=== PATIENT | female | born 1985 | race African-American/Black ===

== ENCOUNTER 2016-08-30 | Outpatient (CLI) | payer OTHER | END 2016-08-30 02:31 | disposition critical access hospital (66) | DX: R07.9 Chest pain, unspecified (principal) | CPT/HCPCS: A0425; A0429 ==

== ENCOUNTER 2016-08-30 02:50 | Emergency (ER) | payer OTHER ==
[2016-08-30] MEDS ORDERED: MAG HYDROX/AL HYDROX/SIMETH 30 ML UDC PO STA (03:31)
[2016-08-30] MEDS ORDERED: ACETAMINOPHEN 325 MG TABLET PO STA (03:31)
[2016-08-30] MEDS ORDERED: ACETAMINOPHEN 325 MG TABLET PO ONE (03:50)
[2016-08-30] MEDS ORDERED: MAG HYDROX/AL HYDROX/SIMETH 30 ML UDC ONE (03:50)
== END 2016-08-30 05:15 | disposition home or self-care (01) ==
DX: R07.2 Precordial pain (principal)
CPT/HCPCS: 71020; 93005; 93010; 99283; 99284; A9270

== ENCOUNTER 2016-10-29 17:52 | Emergency (ER) | payer OTHER ==
[2016-10-29] MEDS ORDERED: NITROFURANTOIN MACRO 100 MG CAPSULE PO STA (18:43)
[2016-10-29] MEDS ORDERED: NITROFURANTOIN MACRO 100 MG CAPSULE PO ONE (18:55)
== END 2016-10-29 19:15 | disposition home or self-care (01) ==
DX: N39.0 Urinary tract infection, site not specified (principal); R03.0 Elevated blood-pressure reading, without diagnosis of hypertension
CPT/HCPCS: 81001; 81025; 87077; 87086; 87181; 99283; A9270

== ENCOUNTER 2017-12-02 04:52 | Outpatient (CLI) | payer OTHER | END 2017-12-02 04:53 | disposition critical access hospital (66) | LOC: EMS 04:52 | PROVIDERS: ATTEND Surgery | DX: R07.9 Chest pain, unspecified (principal) | CPT/HCPCS: A0425; A0427 ==

== ENCOUNTER 2017-12-02 05:10 | Emergency (ER) | payer OTHER ==
--- NOTE | 2017-12-02 05:43 | ED Physician Documentation ---
PD HPI CHEST PAIN - Stated complaint Stated Complaint: CP - Chief complaint Chief Complaint: Cardiac - History obtained from History obtained from: Patient - History of Present Illness Timing - onset: Enter time (04:15), Today Timing - onset during: Sleep Timing - duration: Minutes Timing - details: Abrupt onset Pain level now: 0 Location: Substernal, Left chest Improved by: Nothing Worsened by: Other (no exacerbating factors) Associated symptoms: Palpitations. No: Shortness of air, Diaphoresis, Nausea, Vomiting, General Weakness Similar symptoms before: No diagnosis - Additional information Additional information: woke at 4:15 this morning with chest pain, rapid palpitations. 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 She has had similar (milder) chest pain, episodic, x 3 days but not palpitations. Review of Systems Constitutional: denies: Fever, Chills, Sweats Cardiac: reports: Chest pain / pressure, Palpitations. denies: Pedal edema, Calf pain Respiratory: denies: Dyspnea, Cough GI: reports: Reviewed and negative Musculoskeletal: denies: Extremity swelling PD PAST MEDICAL HISTORY - Past Medical History Past Medical History: No Cardiovascular: Other Respiratory: None Neuro: None Endocrine/Autoimmune: None - Past Surgical History Past Surgical History: No - Present Medications Home Medications: Ambulatory Orders Medication Instructions Recorded Confirmed LORazepam [Lorazepam] 0.5 - 1 mg PO BID PRN #14 tablet 12/02/17 - Allergies Allergies/Adverse Reactions: Allergies Allergy/AdvReac Type Severity Reaction Status Date / Time ibuprofen [From Motrin] Allergy Intermediate Rash Verified 12/02/17 05:16 - Social History Does the pt smoke?: No Smoking Status: Never smoker Does the pt drink ETOH?: No Does the pt have substance abuse?: No - Immunizations Immunizations are current?: Yes - POLST Patient has POLST: No PD ED PE NORMAL - Vitals Vital signs reviewed: Yes - General General: Alert and oriented X 3, No acute distress, Well developed/nourished - Cardiac Cardiac: RRR, No murmur, No gallop, No rub - Respiratory Respiratory: No respiratory distress, Clear bilaterally - Abdomen Abdomen: Soft, Non tender - Extremities Extremities: No edema Results - Vitals Vitals: Oxygen O2 Source Room air - EKG (time done) No standard instances Rate: Rate (enter#) (67) Rhythm: NSR [place]: Normal Intervals: Normal [place] QRS: Normal Ischemia: Normal ST segments, T wave inversion (isolated III) Compare to prior EKG: Unchanged from prior EKG (08/30/16) PD MEDICAL DECISION MAKING - ED course Complexity details: reviewed old records, considered differential, d/w patient ED course: At the completion of my H+P, patient asks to be discharged home without testing beyond the EKG that was already performed. She says she feels fine and will follow-up with her doctor. Departure - Departure Disposition: 01 Home, Self Care Clinical Impression: Heart palpitations, Chest pain Condition: Good Instructions: ED Chest Pain Atypical Unkn Cause, ED Palpitations Follow-Up: AMBER Goldstein [Provider Group] Prescriptions: LORazepam [Lorazepam] 0.5 - 1 mg PO BID PRN #14 tablet PRN Reason: Anxiety Discharge Date/Time: 12/02/17 06:16
[2017-12-02 06:03] VITALS: BP 111/81
== END 2017-12-02 06:16 | disposition home or self-care (01) ==
LOC: EDUNIT# → SUPCPDRO 05:10 → ED 05:10
DX: R00.2 Palpitations (principal); R07.9 Chest pain, unspecified
CPT/HCPCS: 93005; 99284

== ENCOUNTER 2018-03-19 21:12 | Emergency (ER) | payer OTHER ==
[2018-03-19 22:04] LABS: BASOPHILS # (AUTO) 0.1 10^3/uL (0.0-0.1); BASOPHILS % (AUTO) 0.7 %; EOSINOPHILS # (AUTO) 0.1 10^3/uL (0.0-0.7); EOSINOPHILS % (AUTO) 1.1 %; HGB - HEMOGLOBIN 11.6 g/dL (12.0-16.0); LYMPHOCYTES # (AUTO) 2.5 10^3/uL (1.5-3.5); LYMPHOCYTES % (AUTO) 22.7 %; MEAN CORPUSCULAR HEMOGLOBIN 28.4 pg (27.0-31.0); MEAN CORPUSCULAR HGB CONC 33.7 g/dL (32.0-36.0); MEAN CORPUSCULAR VOLUME 84.3 fL (81.0-99.0); MEAN PLATELET VOLUME 7.5 fL (7.9-10.8); MONOCYTES # (AUTO) 0.7 10^3/uL (0.0-1.0); MONOCYTES % (AUTO) 6.1 %; NEUTROPHILS # (AUTO) 7.6 10^3/uL (1.5-6.6); NEUTROPHILS % (AUTO) 69.4 %; PLT - PLATELET COUNT 315 10^3/uL (130-450); RED BLOOD COUNT 4.08 10^6/uL (4.20-5.40); RED CELL DISTRIBUTION WIDTH 13.6 % (12.0-15.0)
[2018-03-19 22:16] LABS: ALBUMIN 4.1 g/dL (3.2-5.5); ALBUMIN/GLOBULIN RATIO 1.2 (1.0-2.2); BILIRUBIN,TOTAL 0.5 mg/dL (0.2-1.0); CALCIUM 9.2 mg/dL (8.5-10.3); CREATININE 0.7 mg/dL (0.4-1.0); TOTAL PROTEIN 7.4 g/dL (6.7-8.2)
--- NOTE | 2018-03-19 22:19 | ED Physician Documentation ---
History of Present Illness - Stated complaint Stated Complaint: SOA - Chief complaint Chief Complaint: General - History obtained from History obtained from: Patient - History of Present Illness Timing: Other (various c/o over different timeframes) Improved by: no ameliorating factors Worsened by: no exacerbating factors - Treatment prior to arrival Treatment prior to arrival: patient has had difficulty sleeping since December of this year, was T+R from this ED and rx lorazepam. did not fill the rx, as she preferred to try to work on the problem without using medication. She says the difficulty sleeping improved initially but gradually worsened over past 1-2 months and particularly worse past week. She also experiences episodic palpitations and recently has been experiencing generalized malaise and fatigue. Has tried melatonin with some improvement although she feels groggy the next day. Review of Systems Constitutional: reports: Myalgias, Fatigue. denies: Fever, Chills Cardiac: reports: Palpitations. denies: Chest pain / pressure Respiratory: reports: Dyspnea. 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 HEENT: None Psych: None Musculoskeletal: None Derm: None - Past Surgical History Past Surgical History: No - Present Medications Home Medications: Ambulatory Orders Medication Instructions Recorded Confirmed LORazepam [Lorazepam] 1 mg PO QPM PRN #14 tablet 03/19/18 - Allergies Allergies/Adverse Reactions: Allergies Allergy/AdvReac Type Severity Reaction Status Date / Time ibuprofen [From Motrin] Allergy Intermediate Rash Verified 12/02/17 05:16 - Social History Does the pt smoke?: No Smoking Status: Never smoker Does the pt drink ETOH?: Yes Does the pt have substance abuse?: No - Immunizations Immunizations are current?: Yes - POLST Patient has POLST: No PD ED PE NORMAL - Vitals Vital signs reviewed: Yes - General General: Alert and oriented X 3, No acute distress, Well developed/nourished - Neck Neck: Supple, no meningeal sign - Cardiac Cardiac: RRR, No murmur, No gallop, No rub - Respiratory Respiratory: No respiratory distress, Clear bilaterally - Abdomen Abdomen: Soft, Non tender - Derm Derm: Normal color, Warm and dry - Extremities Extremities: No edema - Neuro Neuro: Alert and oriented X 3, recordist 2-12 intact, No motor deficit, No sensory deficit, Normal speech Results - Vitals Vitals: Vital Signs - 24 hr 03/19/18 03/19/18 03/19/18 21:15 21:59 23:04 Temperature 36.4 C L 36.9 C 36.2 C L Heart Rate 68 66 67 Respiratory 16 14 18 Rate Blood Pressure 118/79 119/75 106/68 O2 Saturation 100 100 100 Oxygen O2 Source Room air - EKG (time done) No standard instances Rate: Rate (enter#) (62) Rhythm: NSR [place]: Normal Intervals: Normal [place] QRS: Normal Ischemia: Normal ST segments, T wave inversion (isolated III) - Labs Labs: Laboratory Tests 03/19/18 03/19/18 03/19/18 22:00 22:00 22:15 WBC 11.0 H RBC 4.08 L Hgb 11.6 L Hct 34.4 L MCV 84.3 MCH 28.4 MCHC 33.7 RDW 13.6 Plt Count 315 MPV 7.5 L Neut # (Auto) 7.6 H Lymph # (Auto) 2.5 [place] # (Auto) 0.7 Eos # (Auto) 0.1 Baso # (Auto) 0.1 Absolute Nucleated RBC 0.01 Nucleated RBC % 0.0 Sodium 136 Potassium 3.8 Chloride 103 Carbon Dioxide 25 Anion Gap 8.0 BUN 10 Creatinine 0.7 Estimated GFR (MDRD) 119 Glucose 91 Calcium 9.2 Magnesium 2.0 Total Bilirubin 0.5 AST 16 ALT 18 Alkaline Phosphatase 55 Total Protein 7.4 Albumin 4.1 Globulin 3.3 Albumin/Globulin Ratio 1.2 Lipase 28 Urine Color YELLOW Urine Clarity CLEAR Urine pH 6.5 Ur Specific [place] 1.010 Urine Protein NEGATIVE Urine Glucose (UA) NEGATIVE Urine Ketones NEGATIVE Urine Occult Blood TRACE-LYSE Urine Nitrite NEGATIVE Urine Bilirubin NEGATIVE Urine Urobilinogen 0.2 (NORMAL) Ur Leukocyte Esterase NEGATIVE Ur Microscopic Review NOT INDICATED Urine Culture Comments NOT INDICATED Urine HCG, Qual NEGATIVE PD MEDICAL DECISION MAKING - ED course Complexity details: reviewed old records, reviewed results, re-evaluated patient , considered differential, d/w patient ED course: NAD on this evaluation. she is calm, cooperative, pleasant. Unremarkable blood tests and EKG. Further emergent testing not indicated at this time. Encouraged to return if worse, and to f/u with her primary care provider, as further tests might be recommended. I wrote new rx for lorazepam, as she did not fill previous rx and does not think she still has it. This is to be used as needed at night for sleep. - Sepsis Event Vital Signs: Vital Signs - 24 hr 03/19/18 03/19/18 03/19/18 21:15 21:59 23:04 Temperature 36.4 C L 36.9 C 36.2 C L Heart Rate 68 66 67 Respiratory 16 14 18 Rate Blood Pressure 118/79 119/75 106/68 O2 Saturation 100 100 100 Oxygen O2 Source Room air Departure - Departure Disposition: 01 Home, Self Care Clinical Impression: Heart palpitations Insomnia Qualifiers: Insomnia type: unspecified Qualified Code(s): G47.00 - Insomnia, unspecified Condition: Good Instructions: ED Insomnia, ED Palpitations Follow-Up: Starr Jeronimo PA-C [Primary Care Provider] - (Call to arrange for next available appointment) Prescriptions: LORazepam [Lorazepam] 1 mg PO QPM PRN #14 tablet PRN Reason: Insomnia Discharge Date/Time: 03/19/18 23:05
[2018-03-19 22:24] LABS: BILIRUBIN,URINE NEGATIVE (NEGATIVE); GLUCOSE, URINE (UA) NEGATIVE (NEGATIVE); KETONES,URINE (UA) NEGATIVE (NEGATIVE); LEUKOCYTE ESTERASE, URINE NEGATIVE (NEGATIVE); NITRITE,URINE NEGATIVE (NEGATIVE); OCCULT BLOOD,URINE TRACE-LYSE (NEGATIVE); PH,URINE 6.5 PH (5.0-7.5); PROTEIN,URINE NEGATIVE (NEGATIVE); UROBILINOGEN,URINE 0.2 (NORMAL) E.U./dL (NORMAL)
[2018-03-19 22:25] LABS: CLARITY,URINE CLEAR (CLEAR); HCG UR QUAL NEGATIVE
[2018-03-19 23:04] VITALS: BP 106/68
== END 2018-03-19 23:05 | disposition home or self-care (01) ==
LOC: ED 21:12
DX: G47.00 Insomnia, unspecified (principal)
CPT/HCPCS: 36415; 80053; 81001; 81003; 81025; 83690; 83735; 85025; 87086; 93005; 99283

== ENCOUNTER 2018-05-11 12:04 | Outpatient (CLI) | payer OTHER ==
[2018-05-11 19:21] LABS: CHOLESTEROL 269 mg/dL; HDL CHOLESTEROL 68 mg/dL; LDL CHOLESTEROL,CALCULATED 178 mg/dL; LDL/HDL RATIO 2.6 (<4.4); VLDL CHOLESTEROL 23 mg/dL
== END 2018-05-11 12:05 | disposition home or self-care (01) ==
LOC: LAB.WCP 12:04
PROVIDERS: ATTEND Physician Assistant Medical
DX: Z00.00 Encounter for general adult medical examination without abnormal findings (principal); E78.5 Hyperlipidemia, unspecified
CPT/HCPCS: 36415; 80061; 83721; 84443

== ENCOUNTER 2018-08-04 12:33 | Emergency (ER) | payer OTHER ==
[2018-08-04 13:13] LABS: BILIRUBIN,URINE NEGATIVE (NEGATIVE); GLUCOSE, URINE (UA) NEGATIVE (NEGATIVE); KETONES,URINE (UA) NEGATIVE (NEGATIVE); LEUKOCYTE ESTERASE, URINE NEGATIVE (NEGATIVE); NITRITE,URINE NEGATIVE (NEGATIVE); OCCULT BLOOD,URINE SMALL (NEGATIVE); PROTEIN,URINE NEGATIVE (NEGATIVE); UROBILINOGEN,URINE 0.2 (NORMAL) E.U./dL (NORMAL)
[2018-08-04 13:15] LABS: CLARITY,URINE CLEAR (CLEAR); HCG UR QUAL NEGATIVE
[2018-08-04 13:39] LABS: BASOPHILS % (AUTO) 0.4 %; EOSINOPHILS # (AUTO) 0.1 10^3/uL (0.0-0.7); EOSINOPHILS % (AUTO) 0.9 %; LYMPHOCYTES # (AUTO) 1.3 10^3/uL (1.5-3.5); MEAN CORPUSCULAR HEMOGLOBIN 28.2 pg (27.0-31.0); MEAN CORPUSCULAR HGB CONC 33.5 g/dL (32.0-36.0); MEAN CORPUSCULAR VOLUME 84.3 fL (81.0-99.0); MEAN PLATELET VOLUME 7.7 fL (7.9-10.8); MONOCYTES # (AUTO) 0.8 10^3/uL (0.0-1.0); MONOCYTES % (AUTO) 6.7 %; NEUTROPHILS # (AUTO) 9.8 10^3/uL (1.5-6.6); PLT - PLATELET COUNT 285 10^3/uL (130-450); RED BLOOD COUNT 4.25 10^6/uL (4.20-5.40); RED CELL DISTRIBUTION WIDTH 13.8 % (12.0-15.0); WHITE BLOOD COUNT 12.1 x10^3/uL (4.8-10.8)
[2018-08-04 13:49] LABS: ALBUMIN 3.7 g/dL (3.2-5.5); ALBUMIN/GLOBULIN RATIO 0.9 (1.0-2.2); BILIRUBIN,TOTAL 0.4 mg/dL (0.2-1.0); CALCIUM 9.4 mg/dL (8.5-10.3); CREATININE 0.7 mg/dL (0.4-1.0); TOTAL PROTEIN 7.8 g/dL (6.7-8.2)
[2018-08-04 13:57] LABS: BACTERIA,URINE Rare /HPF (None Seen); RBC,URINE 0-5 /HPF (0-5); SQUAMOUS EPITHELIAL CELL,UR FEW Squamous (<= Few)
[2018-08-04] MEDS ORDERED: MAG HYDROX/AL HYDROX/SIMETH 30 ML UDC PO STA ×2 (14:39→15:21)
[2018-08-04] MEDS ORDERED: LIDOCAINE VISCOUS 2% 15 ML UDC MM STA (14:39)
--- NOTE | 2018-08-04 14:41 | ED Physician Documentation ---
PD HPI ABD PAIN - Stated complaint Stated Complaint: AB PX - Chief complaint Chief Complaint: Abd Pain - History obtained from History obtained from: Patient, Family - History of Present Illness Timing - onset: How many days ago (2) Timing - duration: Days (2) Timing - details: Gradual onset, Still present Quality: Sharp, Pain Location: Epigastric Improved by: Laying still Worsened by: Position, Palpation Associated symptoms: No: Fever, Nausea, Vomiting, Hematemesis, Diarrhea, Constipation, Melena, Hematochezia, Dysuria, Hematuria, Chest pain, Dizzy, Near syncope / syncope, Loss of appetite Similar symptoms before: Has not had sx before Recently seen: Not recently seen Review of Systems Constitutional: denies: Fever, Chills, Myalgias Eyes: denies: Decreased vision Ears: denies: Ear pain Nose: denies: Congestion Throat: denies: Sore throat Cardiac: denies: Chest pain / pressure, Palpitations Respiratory: denies: Dyspnea, Cough GI: reports: Abdominal Pain. 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 HEENT: None Psych: None Musculoskeletal: None Derm: None - Past Surgical History Past Surgical History: No - Present Medications Home Medications: Ambulatory Orders Medication Instructions Recorded Confirmed LORazepam [Lorazepam] 1 mg PO QPM PRN #14 tablet 03/19/18 Sucralfate [Carafate] 1 gm PO ACHS #60 tablet 08/04/18 - Allergies Allergies/Adverse Reactions: Allergies Allergy/AdvReac Type Severity Reaction Status Date / Time ibuprofen [From Motrin] Allergy Intermediate Rash Verified 08/04/18 12:39 - Social History Does the pt smoke?: No Smoking Status: Never smoker Does the pt drink ETOH?: Yes Does the pt have substance abuse?: No - Immunizations Immunizations are current?: Yes - POLST Patient has POLST: No PD ED PE NORMAL - Vitals Vital signs reviewed: Yes (normal ) - General General: Alert and oriented X 3, No acute distress, Well developed/nourished - HEENT HEENT: Atraumatic, PERRL, EOMI - Neck Neck: Supple, no meningeal sign, No bony TTP - Cardiac Cardiac: RRR, No murmur - Respiratory Respiratory: No respiratory distress, Clear bilaterally - Abdomen Abdomen: Soft, Other (epigastric and L and R upper quadrant pain to palpation without garding or rebound and not reproducible.) - Back Back: No CVA TTP, No spinal TTP - Derm Derm: Normal color, Warm and dry, No rash - Extremities Extremities: No deformity, No edema - Neuro Neuro: Alert and oriented X 3, heating and cooling technician 2-12 intact, No motor deficit, No sensory deficit, Normal speech Eye Opening: Spontaneous Motor: Obeys Commands Verbal: Oriented GCS Score: 15 - Psych Psych: Normal mood, Normal affect Results - Vitals Vitals: Vital Signs - 24 hr 08/04/18 12:38 Temperature 36.6 C Heart Rate 86 Respiratory 18 Rate Blood Pressure 121/72 O2 Saturation 100 Oxygen O2 Source Room air - Labs Labs: Laboratory Tests 08/04/18 08/04/18 08/04/18 13:00 13:30 13:30 WBC 12.1 H RBC 4.25 Hgb 12.0 Hct 35.9 L MCV 84.3 MCH 28.2 MCHC 33.5 RDW 13.8 Plt Count 285 MPV 7.7 L Neut # (Auto) 9.8 H Lymph # (Auto) 1.3 L [place] # (Auto) 0.8 Eos # (Auto) 0.1 Baso # (Auto) 0.0 Absolute Nucleated RBC 0.01 Nucleated RBC % 0.0 Sodium 137 Potassium 3.8 Chloride 103 Carbon Dioxide 26 Anion Gap 8.0 BUN 8 Creatinine 0.7 Estimated GFR (MDRD) 118 Glucose 117 H Calcium 9.4 Total Bilirubin 0.4 AST 39 ALT 52 Alkaline Phosphatase 72 Total Protein 7.8 Albumin 3.7 Globulin 4.1 Albumin/Globulin Ratio 0.9 L Lipase 25 Urine Color YELLOW Urine Clarity CLEAR Urine pH 7.0 Ur Specific [place] 1.020 Urine Protein NEGATIVE Urine Glucose (UA) NEGATIVE Urine Ketones NEGATIVE Urine Occult Blood SMALL H Urine Nitrite NEGATIVE Urine Bilirubin NEGATIVE Urine Urobilinogen 0.2 (NORMAL) Ur Leukocyte Esterase NEGATIVE Urine RBC 0-5 Urine WBC 0-3 Ur Squamous Epith Cells FEW Squamous Urine Bacteria Rare Ur Microscopic Review INDICATED Urine Culture Comments NOT INDICATED Urine HCG, Qual NEGATIVE PD MEDICAL DECISION MAKING - ED course Complexity details: reviewed results, re-evaluated patient, considered differential, d/w patient, d/w family ED course: 33-year-old female with history of epigastric pain for the past 3 days has episodes of sharp sharp severe pain and a background pain. She has improvement in her pain with use of viscous lidocaine Mylanta and the severe sharp increases are less. She denies any use of ibuprofen Aleve or alcohol. She does eat microwaved food but does not recall any specific incident of extra hot food. Departure - Departure Disposition: 01 Home, Self Care Clinical Impression: Gastritis Qualifiers: Gastritis type: unspecified gastritis Chronicity: acute Gastritis bleeding: without bleeding Qualified Code(s): K29.00 - Acute gastritis without bleeding Condition: Stable Instructions: ED PUD Vs Gastritis Follow-Up: Nilton Delgado ARNP [Primary Care Provider] - Prescriptions: Sucralfate [Carafate] 1 gm PO ACHS #60 tablet Comments: Today it appears your stomach has been irritated and I recommend you take some medication to reduce the acid in your stomach (like zantac or pepcid) on a regular basis for at least a week. In addition I recommend you take the carafate for about one week as well.
[2018-08-04 15:27] VITALS: BP 118/70
== END 2018-08-04 15:28 | disposition home or self-care (01) ==
LOC: ED 12:33
DX: K29.00 Acute gastritis without bleeding (principal)
CPT/HCPCS: 36415; 80053; 81001; 81025; 83690; 85025; 99283; A9270; 81003; 87086

== ENCOUNTER 2018-09-22 21:53 | Emergency (ER) | payer OTHER ==
[2018-09-22 23:12] LABS: BILIRUBIN,URINE NEGATIVE (NEGATIVE); GLUCOSE, URINE (UA) NEGATIVE (NEGATIVE); KETONES,URINE (UA) NEGATIVE (NEGATIVE); LEUKOCYTE ESTERASE, URINE NEGATIVE (NEGATIVE); NITRITE,URINE NEGATIVE (NEGATIVE); OCCULT BLOOD,URINE TRACE-LYSE (NEGATIVE); PROTEIN,URINE NEGATIVE (NEGATIVE); UROBILINOGEN,URINE 0.2 (NORMAL) E.U./dL (NORMAL)
[2018-09-22 23:16] LABS: CLARITY,URINE CLEAR (CLEAR)
[2018-09-22 23:24] LABS: HCG UR QUAL NEGATIVE
--- NOTE | 2018-09-22 23:41 | ED Physician Documentation ---
History of Present Illness - Stated complaint Stated Complaint: DISORIENTATION - Chief complaint Chief Complaint: General - History obtained from History obtained from: Patient - History of Present Illness Timing: Today Pain level now: 6 Improved by: laying still Worsened by: movement - Additonal information Additional information: c/o dizziness spells, like room is spinning, sudden onset while watching TV and then turns head or tries to stand up. associated with nausea. also c/o 1-2 months of right flank and right paralumbar back pain with nausea and bloating. Review of Systems Constitutional: reports: Reviewed and negative Eyes: reports: Reviewed and negative Ears: denies: Ear pain Nose: reports: Reviewed and negative Cardiac: reports: Reviewed and negative Respiratory: reports: Reviewed and negative GI: reports: Abdominal Pain (right flank), Nausea. denies: Vomiting, Constipation, Diarrhea : denies: Dysuria, Frequency Skin: denies: Rash Musculoskeletal: reports: Back pain. 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 HEENT: None Psych: None Musculoskeletal: None Derm: None - Past Surgical History Past Surgical History: No - Present Medications Home Medications: Ambulatory Orders Medication Instructions Recorded Confirmed LORazepam [Lorazepam] 1 mg PO QPM PRN #14 tablet 03/19/18 Sucralfate [Carafate] 1 gm PO ACHS #60 tablet 08/04/18 Meclizine HCl 12.5 - 25 mg PO Q6HR PRN #20 tablet 09/23/18 - Allergies Allergies/Adverse Reactions: Allergies Allergy/AdvReac Type Severity Reaction Status Date / Time ibuprofen [From Motrin] Allergy Intermediate Rash Verified 09/22/18 22:13 - Social History Does the pt smoke?: No Smoking Status: Never smoker Does the pt drink ETOH?: Yes Does the pt have substance abuse?: No - Immunizations Immunizations are current?: Yes - POLST Patient has POLST: No PD ED PE NORMAL - Vitals Vital signs reviewed: Yes - General General: Alert and oriented X 3, No acute distress, Well developed/nourished - HEENT HEENT: Atraumatic, PERRL, EOMI, Moist mucous membranes - Neck Neck: Supple, no meningeal sign - Cardiac Cardiac: RRR, No murmur, No gallop, No rub - Respiratory Respiratory: No respiratory distress, Clear bilaterally - Abdomen Abdomen: Normal bowel sounds, Soft, Non tender, Non distended - Back Back: No CVA TTP - Derm Derm: Normal color, Warm and dry, No rash - Extremities Extremities: No edema Results - Vitals Vitals: Vital Signs - 24 hr 09/22/18 09/22/18 09/22/18 22:09 22:58 23:59 Temperature 36.9 C Heart Rate 80 80 Respiratory 17 15 Rate Blood Pressure 123/88 H 128/85 H O2 Saturation 100 100 09/23/18 01:00 Temperature Heart Rate 78 Respiratory 16 Rate Blood Pressure 117/74 O2 Saturation 100 Oxygen O2 Source Room air - Labs Labs: Laboratory Tests 09/22/18 23:00 Urine Color YELLOW Urine Clarity CLEAR Urine pH 7.0 Ur Specific [place] <=1.005 Urine Protein NEGATIVE Urine Glucose (UA) NEGATIVE Urine Ketones NEGATIVE Urine Occult Blood TRACE-LYSE Urine Nitrite NEGATIVE Urine Bilirubin NEGATIVE Urine Urobilinogen 0.2 (NORMAL) Ur Leukocyte Esterase NEGATIVE Ur Microscopic Review NOT INDICATED Urine Culture Comments NOT INDICATED Urine HCG, Qual NEGATIVE PD MEDICAL DECISION MAKING - ED course Complexity details: re-evaluated patient, considered differential, d/w patient ED course: description of HPI suggests two separate issues : 1) vertigo, which responded well to antivert given in ED, and 2) flank pain, possibly biliary colic. however, she is in NAD during ED evaluation and afebrile with benign abdominal exam. these symptoms have been intermittent for months and thus I did not feel emergent testing was indicated for this at this time. I instructed her to return if worse, but f/u with PMD next available appointment. Departure - Departure Disposition: 01 Home, Self Care Clinical Impression: Flank pain, Vertigo Condition: Good Instructions: ED Flank Pain Uncertain Cause, Meclizine, ED Vertigo Unspecified Prescriptions: Meclizine HCl 12.5 - 25 mg PO Q6HR PRN #20 tablet PRN Reason: Vertigo Discharge Date/Time: 09/23/18 01:43
[2018-09-23] MEDS ORDERED: MECLIZINE 12.5 MG TABLET PO STA
[2018-09-23 01:04] VITALS: BP 117/74
== END 2018-09-23 01:43 | disposition home or self-care (01) ==
LOC: ED 21:53
DX: R42 Dizziness and giddiness (principal); R10.9 Unspecified abdominal pain; R11.0 Nausea; M54.5 Low back pain
CPT/HCPCS: 81003; 81025; 99283; A9270; 81001; 87086

== ENCOUNTER 2019-01-16 02:00 | Emergency (ER) | payer OTHER ==
--- NOTE | 2019-01-16 02:40 | ED Physician Documentation ---
PD HPI CHEST PAIN - Stated complaint Stated Complaint: DIFF BREATHING,CHEST TIGHTNESS - Chief complaint Chief Complaint: Cardiac - History obtained from History obtained from: Patient - History of Present Illness Timing - onset: Today Timing - details: Gradual onset, Waxing and waning Pain level now: 0 Quality: Tightness Location: Substernal Radiation: Other (radiated around both sides of mid/upper chest to back) Improved by: Nothing Worsened by: Other (no exacerbating factors) Associated symptoms: Shortness of air, Cough. No: Diaphoresis, Nausea, Vomiting Similar symptoms before: No diagnosis (similar symptoms in the past with some ED visits for same but no specific diagnosis) Recently seen: Not recently seen Review of Systems Constitutional: reports: Myalgias. denies: Fever, Chills, Sweats Nose: reports: Congestion Throat: denies: Sore throat Cardiac: reports: Chest pain / pressure. denies: Palpitations, Pedal edema, Calf pain Respiratory: reports: Dyspnea, Cough. 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 HEENT: None Psych: None Musculoskeletal: None Derm: None - Past Surgical History Past Surgical History: No - Present Medications Home Medications: Ambulatory Orders Medication Instructions Recorded Confirmed No Known Home Medications 01/16/19 01/16/19 - Allergies Allergies/Adverse Reactions: Allergies Allergy/AdvReac Type Severity Reaction Status Date / Time ibuprofen [From Motrin] Allergy Intermediate Rash Verified 01/16/19 02:09 - Social History Does the pt smoke?: No Smoking Status: Never smoker Does the pt drink ETOH?: Yes Does the pt have substance abuse?: No - Immunizations Immunizations are current?: Yes - POLST Patient has POLST: No PD ED PE NORMAL - Vitals Vital signs reviewed: Yes - General General: Alert and oriented X 3, No acute distress, Well developed/nourished - HEENT HEENT: Moist mucous membranes - Neck Neck: Supple, no meningeal sign, No JVD - Cardiac Cardiac: RRR, No murmur, No gallop, No rub - Respiratory Respiratory: No respiratory distress, Clear bilaterally - Abdomen Abdomen: Soft, Non tender - Derm Derm: Normal color, Warm and dry, No rash - Extremities Extremities: No edema Results - Vitals Vitals: Oxygen O2 Source Room air - EKG (time done) No standard instances Rate: Rate (enter#) (62) Rhythm: NSR [place]: Normal Intervals: Normal [place] QRS: Normal Ischemia: T wave inversion (isolated III) Compare to prior EKG: Unchanged from prior EKG (no significant change vs. 12/02/17) - Labs Labs: Laboratory Tests 01/16/19 01/16/19 01/16/19 03:10 03:10 03:10 WBC 10.0 RBC 3.92 L Hgb 11.4 L Hct 33.0 L MCV 84.3 MCH 29.2 MCHC 34.6 RDW 14.1 Plt Count 295 MPV 7.7 L Neut # (Auto) 6.4 Lymph # (Auto) 2.6 [place] # (Auto) 0.7 Eos # (Auto) 0.2 Baso # (Auto) 0.1 Absolute Nucleated RBC 0.00 Nucleated RBC % 0.0 Sodium 138 Potassium 4.2 Chloride 102 Carbon Dioxide 27 Anion Gap 9.0 BUN 13 Creatinine 0.7 Estimated GFR (MDRD) 118 Glucose 102 H Calcium 9.5 Total Bilirubin 0.7 AST 21 ALT 25 Alkaline Phosphatase 55 Troponin I < 0.04 Total Protein 7.6 Albumin 3.8 Globulin 3.8 Albumin/Globulin Ratio 1.0 Lipase 27 - Rads (name of study) chest xray Radiology: Prelim report reviewed, See rad report PD MEDICAL DECISION MAKING - ED course Complexity details: reviewed old records, reviewed results, re-evaluated patient, considered differential, d/w patient Departure - Departure Disposition: 01 Home, Self Care Clinical Impression: Chest pain Qualifiers: Chest pain type: unspecified Qualified Code(s): R07.9 - Chest pain, unspecified Upper respiratory infection Qualifiers: URI type: unspecified URI Qualified Code(s): J06.9 - Acute upper respiratory infection, unspecified Condition: Good Instructions: ED Upper Resp Infec No Abx Tx, ED Chest Pain Atypical Unkn Cause Follow-Up: Nilton Delgado ARNP [Primary Care Provider] - Discharge Date/Time: 01/16/19 05:15
[2019-01-16 03:18] LABS: BASOPHILS # (AUTO) 0.1 10^3/uL (0.0-0.1); BASOPHILS % (AUTO) 0.9 %; EOSINOPHILS # (AUTO) 0.2 10^3/uL (0.0-0.7); HGB - HEMOGLOBIN 11.4 g/dL (12.0-16.0); LYMPHOCYTES # (AUTO) 2.6 10^3/uL (1.5-3.5); LYMPHOCYTES % (AUTO) 25.7 %; MEAN CORPUSCULAR HEMOGLOBIN 29.2 pg (27.0-31.0); MEAN CORPUSCULAR HGB CONC 34.6 g/dL (32.0-36.0); MEAN CORPUSCULAR VOLUME 84.3 fL (81.0-99.0); MEAN PLATELET VOLUME 7.7 fL (7.9-10.8); MONOCYTES # (AUTO) 0.7 10^3/uL (0.0-1.0); MONOCYTES % (AUTO) 7.4 %; NEUTROPHILS # (AUTO) 6.4 10^3/uL (1.5-6.6); PLT - PLATELET COUNT 295 10^3/uL (130-450); RED BLOOD COUNT 3.92 10^6/uL (4.20-5.40); RED CELL DISTRIBUTION WIDTH 14.1 % (12.0-15.0)
[2019-01-16 03:31] LABS: ALBUMIN 3.8 g/dL (3.2-5.5); BILIRUBIN,TOTAL 0.7 mg/dL (0.2-1.0); CALCIUM 9.5 mg/dL (8.5-10.3); CREATININE 0.7 mg/dL (0.4-1.0); TOTAL PROTEIN 7.6 g/dL (6.7-8.2)
--- NOTE | 2019-01-16 03:34 | XRAY Report ---
Reason: cough, dyspnea, chest pain Procedure Date: 01/16/2019 Accession Number: [id number] / [id number] Procedure: XR - Chest 2 View X-Ray CPT Code: 54342 FULL RESULT: EXAM: CHEST RADIOGRAPHY EXAM DATE: 01/16/2019 03:28 AM. CLINICAL HISTORY: Cough, dyspnea, chest pain. COMPARISON: CHEST 2 VIEW PA/LAT 08/30/2016 4:15 AM. TECHNIQUE: 2 views. FINDINGS: Lungs/Pleura: No focal opacities evident. No pleural effusion. No pneumothorax. Normal volumes. Mediastinum: Heart and mediastinal contours are unremarkable. Other: None. IMPRESSION: Stable negative 2-view chest radiography. [facility]
[2019-01-16 04:51] VITALS: BP 114/72
== END 2019-01-16 05:15 | disposition home or self-care (01) ==
LOC: ED 02:00
DX: R07.89 Other chest pain (principal); J06.9 Acute upper respiratory infection, unspecified
CPT/HCPCS: 36415; 71046; 80053; 83690; 84484; 85025; 93005; 99283

== ENCOUNTER 2019-07-29 22:28 | Outpatient (CLI) | payer OTHER | END 2019-07-29 23:59 | disposition EMS.NT | LOC: EMS 22:28 | PROVIDERS: ATTEND Surgery | DX: R42 Dizziness and giddiness (principal); R06.00 Dyspnea, unspecified; F41.0 Panic disorder [episodic paroxysmal anxiety] ==

== ENCOUNTER 2019-10-04 19:20 | Outpatient (CLI) | payer OTHER | END 2019-10-04 19:21 | disposition EMS.NT | LOC: EMS 19:20 | PROVIDERS: ATTEND Surgery | DX: R09.89 Other specified symptoms and signs involving the circulatory and respiratory systems (principal) ==